=== PATIENT | male | born 1965 | race Caucasian/White ===

== ENCOUNTER 2021-02-01 19:54 | Emergency (ER) | payer BC, OTHER ==
[~2021-02-01] VITALS: Ht 185.4 cm; Wt 104.5 kg
[~2021-02-01 19:54] MED LIST: DOCU-28 PO; HYDR30CR79 TP
[2021-02-01] MEDS ORDERED: CASIRIVIMAB/IMDEVIMAB inject. 10 ML in normal saline 100ml IV soln 100 ML IV ONE (21:25)
[2021-02-01 22:09] LABS: BASOPHILS % (AUTO) 0.2 % (0-1); EOSINOPHILS % (AUTO) 0 % (0-6); HEMATOCRIT 48.6 % (42.0-52.0); HEMOGLOBIN 17.1 g/dl (14.0-17.9); LYMPHOCYTES # (AUTO) 0.9 X10'3 (1.1-4.8); LYMPHOCYTES % (AUTO) 13.2 % (21-51); MEAN CORPUSCULAR HEMOGLOBIN 31.6 PG (27.0-31.0); MEAN CORPUSCULAR HGB CONC 35.1 g/dL (33.0-36.5); MEAN CORPUSCULAR VOLUME 89.9 FL (78-98); MEAN PLATELET VOLUME 8.7 FL (7.4-10.4); MONOCYTES # (AUTO) 0.6 X10'3 (0-0.9); MONOCYTES % (AUTO) 8.5 % (2-12); NEUTROPHILS # (AUTO) 5.5 X10'3 (1.8-7.7); NEUTROPHILS % (AUTO) 78.1 % (42-75); PLATELET COUNT 133 X10'3 (140-440); RED CELL DISTRIBUTION WIDTH 13.1 % (11.5-14.5)
[2021-02-01 22:27] LABS: ALANINE AMINOTRANSFERASE 64 U/L (12-78); ALBUMIN 3.5 G/DL (3.4-5.0); ALBUMIN/GLOBULIN RATIO 0.8 (1.1-1.5); ALKALINE PHOSPHATASE 80 IU/L (46-116); ANION GAP 10 (8-16); ASPARTATE AMINO TRANSFERASE 44 U/L (10-37); BILIRUBIN,TOTAL 1.2 MG/DL (0.1-1.0); BLOOD UREA NITROGEN 25 MG/DL (7-18); C-REACTIVE PROTEIN 10.19 MG/DL (0.0-0.5); CALCIUM 8.8 MG/DL (8.5-10.1); CHLORIDE 94 MMOL/L (99-107); CREATININE 1.25 MG/DL (0.60-1.10); GLUCOSE 243 MG/DL (70-104); SODIUM 129 MMOL/L (135-145); TOTAL CARBON DIOXIDE 25.3 MMOL/L (24-32); eGFR 60 ML/MIN
[2021-02-01 22:29] LABS: LACTATE DEHYDROGENASE 333 U/L (85-227); POTASSIUM 4.2 MMOL/L (3.5-5.1)
[2021-02-01] MEDS ORDERED: ALBU8HFA PO (22:40)
[2021-02-01] MEDS ORDERED: BENZ-16 PO (22:40)
[2021-02-01] MEDS ORDERED: acetaminophen 325mg tablet PO ONE (22:40)
--- NOTE | 2021-02-01 23:16 | NUR ---
PT CONSENTED FOR REGENERON, INFUSING NOW WITH MICRON FILER, VARUN NEAR. GCS 15, NO DISTRESS
[2021-02-02 00:15] VITALS: BP 125/80
== END 2021-02-02 00:21 | disposition home or self-care (01) ==
LOC: ER 19:55
DX: U07.1 COVID-19 (principal); R50.9 Fever, unspecified; R06.02 Shortness of breath; Z79.899 Other long term (current) drug therapy
CPT/HCPCS: 36415; 71045; 80053; 83615; 85025; 86140; 87635; 99285; C9803; M0243; Q0244